=== PATIENT | male | born 1990 | race Caucasian/White ===

== ENCOUNTER 2016-09-12 14:27 | Emergency (ER) | payer SELFPAY ==
[~2016-09-12] VITALS: Ht 182.9 cm; Wt 82.2 kg
[~2016-09-12 14:27] MED LIST: CHLO.12%30 SSP; CLIN150 PO; IBUP800T23 PO; MMW SWISH-SWAL
[2016-09-12 14:32] VITALS: BP 144/78; PULSE 83; RESP 16; TEMP 98.7; O2SAT 99
[2016-09-12] MEDS ORDERED: PENI500T PO (15:05)
[2016-09-12] MEDS ORDERED: HYDR-3533 PO (15:05)
[2016-09-12] MEDS ORDERED: NAPR500 PO (15:05)
--- NOTE | 2016-09-12 15:05 | PD ---
HPI Chief Complaint: Oral / Dental Pain or Problem Time Seen by Provider: 14:43 Travel History International Travel<30 days: No Contact w/Intl Traveler<30days: No Traveled to known affect area: No History of Present Illness HPI 26 year-old woman, no medical history, presents to the emergency department for evaluation of left lower tooth pain. He states that it fractured this morning while eating [employer]. He's had severe pain and swelling since then. He states he called the dentist they cannot see him for another week. He is not really had trouble the tooth before. States he was eating a tortilla which may been a little bit hard but she is not of enough to fracture his tooth. He has no fevers or chills. No other complaints. History Past Medical History Medical History: Denies Significant Hx Influenza Vaccination: No Social History Alcohol Use: No (DENIES) Tobacco Use: Yes (02/13 PPD) Allergies-Medications (Allergen,Severity, Reaction): Coded Allergies: No Known Allergies (Unverified , 09/12/16) Reported Meds & Prescriptions Reported Meds & Active Scripts Active Cleocin (Clindamycin HCl) 150 Mg Cap 300 Mg PO Q6 10 Days Peridex Oral Rinse (Chlorhexidine Gluconate) 0.12 % Malia 15 Ml SSP BID 10 Days Magic Mouthwash-Diphenhy Formula (Lidocaine/Diphenhydr/Alum/Mg/Simeth) Ml 15 Ml SWISH-SWAL Q3H MAGIC MOUTHWASH=MIX 1/3 VISCOUS LIDOCAINE(60 ML),1/3 MAALOX(60 ML),AND 1/3BENADRYL(60 ML) TO EQUAL 180 ML TOTAL. Ibuprofen 800 Mg Tab 800 Mg PO Q8HR PRN Review of Systems Except as stated in HPI: all other systems reviewed are Neg Physical Exam Narrative Gen.: Well-appearing 18-year-old man, no acute distress HEENT: Normal gross appearance. Slight swelling to the left lower mandible from the outside. He has fracture with decay on the first molar on the bottom left. There is significant tenderness to percussion. There is no obvious purulence or abscess. Cardiovascular: Warm and well perfused. Respiratory: Normal rate and effort Data Data Last Documented VS Vital Signs Date Time Temp Pulse Resp B/P Pulse Ox O2 Delivery O2 Flow Rate FiO2 09/12/16 14:32 98.7 83 16 144/78 99 MDM Medical Decision Making Medical Screen Exam Complete: Yes Emergency Medical Condition: Yes Differential Diagnosis Dental fracture, abscess, infection, other Narrative Course Medical decision making 18 year-old woman with fractured decayed tooth in severe pain. Looks well. We' ll give steroids antibiotics and NSAIDs. He is in severe pain. Was offered a dental block which he accepted. Procedures Procedure Narrative Inferior alveolar dental block: Following informed consent, approximately 2 mL some Percent Marcaine was injected near the inferior alveolar nerve using standard technique. Patient tolerated well. Diagnosis Primary Impression: Pain, dental Additional Instructions: Take antibiotics as prescribed. Take Naprosyn and Lortab as needed for pain as prescribed. Follow-up with dentist next week as planned. Return to the emergency department for any new or worsening symptoms. Med/Other Pt SpecificInfo: Prescription(s) given Scripts Hydrocodone-Acetaminophen (Lortab)5-325 Mg Tab1-2 Tab PO Q6H PRN (PAIN) #12 TAB Prov:Chang Zepeda MD 09/12/16 Naproxen (Naprosyn)500 Mg [id number] Mg PO BID PRN (PAIN SCALE 1 TO 10) #20 TAB Prov:Chang Zepeda MD 09/12/16 Penicillin V Potassium 500 Mg [id number] Mg PO Q8H 7 Days Prov:Chang Zepeda MD 09/12/16 Disposition: 01 DISCHARGE HOME Condition: Stable Chang Zepeda MD Sep 12, 2016 15:05
[2016-09-12] MEDS ORDERED: PENICILLIN V POTASSIUM 500 MG TAB PO ONE (15:15)
[2016-09-12] MEDS ORDERED: DEXAMETHASONE 4 MG TAB PO ONE (15:15)
[2016-09-12] MEDS ORDERED: ACETAMINOPHEN/HYDROcodone 325 MG/5 MG TAB PO ONE (15:15)
== END 2016-09-12 16:02 | disposition home or self-care (01) ==
LOC: PHEFT 14:27
DX: K08.89 Other specified disorders of teeth and supporting structures (principal); F17.210 Nicotine dependence, cigarettes, uncomplicated
CPT/HCPCS: 64400; 99284; J8540